=== PATIENT | female | born 1970 | race African-American/Black ===

== ENCOUNTER 2017-12-19 18:08 | Emergency (ER) | payer MEDICAID ==
[~2017-12-19] VITALS: Ht 170.2 cm; Wt 121.0 kg
[2017-12-19 18:42] VITALS: BP 141/80
[2017-12-19] MEDS ORDERED: TETANUS, DIPHTHERIA, PERTUSSIS VAC/PF 0.5ML (>7YR OLD) IM ONE (23:45)
[2017-12-19] MEDS ORDERED: ACETAMINOPHEN 325MG TABLET PO ONE (23:45)
== END 2017-12-20 00:23 | disposition home or self-care (01) ==
LOC: ER 18:08
DX: S90.851A Superficial foreign body, right foot, initial encounter (principal); M79.671 Pain in right foot; E11.9 Type 2 diabetes mellitus without complications; W25.XXXA Contact with sharp glass, initial encounter; Y93.G1 Activity, food preparation and clean up; Y92.090 Kitchen in other non-institutional residence as the place of occurrence of the external cause
CPT/HCPCS: 73630; 81025; 90471; 90715; 99284; Z7610

== ENCOUNTER 2019-09-30 10:13 | Emergency (ER) | payer MEDICAID ==
[~2019-09-30] VITALS: Ht 167.6 cm; Wt 100.0 kg
[2019-09-30] MEDS ORDERED: LORATADINE 10MG TABLET PO SCH (12:30)
[2019-09-30] MEDS ORDERED: FAMOTIDINE 20MG TABLET PO ONE (13:00)
[2019-09-30 13:18] VITALS: BP 124/78
== END 2019-09-30 13:19 | disposition home or self-care (01) ==
LOC: ER 10:27
DX: L50.9 Urticaria, unspecified (principal); E11.9 Type 2 diabetes mellitus without complications; R19.7 Diarrhea, unspecified; Z98.890 Other specified postprocedural states
CPT/HCPCS: 99283

== ENCOUNTER 2020-02-17 18:45 | Emergency (ER) | payer MEDICAID ==
[~2020-02-17] VITALS: Ht 175.3 cm; Wt 120.0 kg
[2020-02-17 19:02] VITALS: BP 133/93
[2020-02-17] MEDS ORDERED: LIDOCAINE HCL/PF 1% 10 MG/ML 5ML VIAL IJ ONE (20:00)
[2020-02-17] MEDS ORDERED: KETOROLAC 60MG/2ML VIAL IM ONE (20:00)
[2020-02-17] MEDS ORDERED: BACITRACIN ZINC OINT UDPKT TOP ONE (20:00)
[2020-02-17] MEDS ORDERED: CEFTRIAXONE SODIUM 1 G/VIAL IM ONE (20:45)
== END 2020-02-17 21:00 | disposition home or self-care (01) ==
LOC: ER 18:45
DX: L02.416 Cutaneous abscess of left lower limb (principal); E11.9 Type 2 diabetes mellitus without complications; Z98.890 Other specified postprocedural states
CPT/HCPCS: 10060; 96372; 99284; J0696; J1885; J3490

== ENCOUNTER 2022-01-20 22:03 | Emergency (ER) | payer MEDICAID ==
[~2022-01-20] VITALS: Ht 172.7 cm; Wt 123.8 kg
[2022-01-21] MEDS ORDERED: IBUPROFEN 600MG TABLET PO ONE (01:15)
[2022-01-21 01:56] VITALS: BP 135/83
== END 2022-01-21 02:00 | disposition home or self-care (01) ==
LOC: ER 22:03
DX: M79.672 Pain in left foot (principal); E11.9 Type 2 diabetes mellitus without complications; E78.00 Pure hypercholesterolemia, unspecified; Z98.890 Other specified postprocedural states; Z98.1 Arthrodesis status
CPT/HCPCS: 82962; 99282

== ENCOUNTER 2022-03-06 17:42 | Emergency (ER) | payer MEDICAID ==
[~2022-03-06] VITALS: Ht 167.6 cm; Wt 75.0 kg
[2022-03-06] MEDS ORDERED: NITROGLYCERIN 0.4MG TABLET SL SL PRN (18:45)
[2022-03-06] MEDS ORDERED: ASPIRIN 81MG TABLET PO ONE (18:45)
[2022-03-06 19:11] VITALS: BP 113/57
[2022-03-06 19:18] LABS: BASOPHILS % 2.9 % (0.0-2.0); EOSINOPHILS % 2.4 % (0.0-5.0); HEMATOCRIT. 39.5 % (36.0-48.0); HEMOGLOBIN. 12.8 g/dL (12.0-16.0); LYMPHOCYTES % 44.9 % (20.0-50.0); MEAN CORPUSCULAR HEMOGLOBIN 25.9 pg (28.0-32.0); MEAN CORPUSCULAR VOLUME 79.9 fL (81.0-99.0); MEAN PLATELET VOLUME 8.3 fl (7.4-10.4); MONOCYTES % 6.5 % (2.0-8.0); NEUTROPHILS % 43.3 % (40.0-76.0); PLATELET 260 x1000/uL (130-400); RED BLOOD CELL COUNT 4.95 mill/uL (4.2-5.4); RED CELL DISTRIBUTION WIDTH 15.8 % (11.6-14.6)
[2022-03-06 19:24] LABS: CHLORIDE 106 mEq/L (98-107)
== END 2022-03-06 19:05 | disposition home or self-care (01) ==
LOC: ER 17:42
DX: R07.89 Other chest pain (principal); M79.674 Pain in right toe(s); E11.9 Type 2 diabetes mellitus without complications; E78.00 Pure hypercholesterolemia, unspecified; Z98.1 Arthrodesis status; Z98.890 Other specified postprocedural states; W01.0XXA Fall on same level from slipping, tripping and stumbling without subsequent striking against object, initial encounter; Y93.89 Activity, other specified; Y92.512 Supermarket, store or market as the place of occurrence of the external cause
CPT/HCPCS: 36415; 71045; 73630; 80053; 83880; 84484; 85025; 85379; 93005; 99285; Z7610

== ENCOUNTER 2022-03-25 19:04 | Emergency (ER) | payer MEDICAID ==
[~2022-03-25] VITALS: Ht 167.6 cm; Wt 110.0 kg
[2022-03-25] MEDS ORDERED: KETOROLAC 60MG/2ML VIAL IM ONE (23:00)
[2022-03-26] MEDS ORDERED: IBUP-2029 MT (01:38)
[2022-03-26] MEDS ORDERED: CYCL10TA21 MT (01:38)
[2022-03-26 01:50] VITALS: BP 132/70
== END 2022-03-26 01:52 | disposition home or self-care (01) ==
LOC: ER 19:04
DX: S60.212A Contusion of left wrist, initial encounter (principal); S90.02XA Contusion of left ankle, initial encounter; Y08.89XA Assault by other specified means, initial encounter; Y93.89 Activity, other specified; Y92.89 Other specified places as the place of occurrence of the external cause; Y99.8 Other external cause status
CPT/HCPCS: 72100; 73100; 73610; 96372; 99284; J1885